=== PATIENT | female | born 1940 | race Caucasian/White ===

== ENCOUNTER → 2016-07-13 | Outpatient (CLI) | payer MEDICARE, OTHER ==
[~2016-07-13] MED LIST: ASPIRIN EC81 MG PO; CPAP; FLONASE 50 MCG/16 GM NOSE; KRILL OIL 5001 EACH PO; LIPITOR10 MG PO; MIRALAX17 GM PO; OSCAL + D500 MG PO; PRILOSEC20 MG PO; PRINIVIL (ZESTR20 MG PO; VITAMIN B COMP1 EACH PO; ZOLOFT100 M1 PO
== END | disposition disaster alternative care site (69) ==
LOC: GRAD 12:35
DX: R13.19 Other dysphagia (principal)
CPT/HCPCS: G8996; G8997; G8998

== ENCOUNTER → 2016-07-25 | Outpatient (CLI) | payer MEDICARE, OTHER | END | disposition disaster alternative care site (69) | LOC: GRAD 09:36 | DX: R13.10 Dysphagia, unspecified (principal); K22.4 Dyskinesia of esophagus; K44.9 Diaphragmatic hernia without obstruction or gangrene ==

== ENCOUNTER → 2016-08-02 | Outpatient (CLI) | payer MEDICARE, OTHER ==
--- NOTE | ~2016-08-02 | PUL ---
PATIENT'S NAME: DAMIR WEBER [facility] AGE: 76 Y [address] ROOM: [place] [id number] LOCATION: [facility] ADMIT DATE: 08/02/2016 Pulmonary DISCHARGE DATE: FAMILY PHYSICIAN: Negra Anand MD ATTENDING PHYSICIAN: DONATO REZA NAME OF PROCEDURE: Pulmonary Function Test DATE OF PROCEDURE: August 02, 2016 TECH: KATE Henry REASON FOR EXAM: Restrictive disease RESULTS: 1. FVC was 2 liters which is 71% of predicted and low, FEV1 was 1.71 liters which is 81% of predicted and normal, FEV1/FVC was 85% and normal. The flow volume curve did not reveal any significant airflow limitation. After bronchodilator administration FVC decreased to 1.9 liters and FEV1 decreased to 1.68 liters and FEV1/FVC was 88%. 2. DLCO and adjusted DLCO were 9.4 which is 42% of predicted and normal. 3. Total lung capacity was 3.11 liters which is 65% of predicted and low, and residual volume was 1.11 liters which is 56% of predicted and low. PHYSICIAN INTERPRETATION: The patient has no airflow limitation and no significant bronchodilator response. Her diffusion capacity is moderately low. There is evidence of mild restrictive lung disease. DONATO REZA MD RFAmira/ks /[id number] dtt: 08/03/16 1202 LIBIA RADU F dtd: 08/03/16 1116
== END | disposition disaster alternative care site (69) ==
LOC: GRTH 12:49
DX: J84.10 Pulmonary fibrosis, unspecified (principal); J98.4 Other disorders of lung